=== PATIENT | female | born 1940 | race Caucasian/White ===

== ENCOUNTER 2021-02-07 09:46 | Inpatient (IN) ==
[2021-02-07] MEDS ORDERED: Isovue-370 500 ML BOTTLE IVP ONE (10:09)
[2021-02-07] MEDS ORDERED: 0.9 % Sodium Chloride 1,000 ML IVC ONE (10:09)
[2021-02-07 10:25] LABS: Basophils % 0.1 %; Hematocrit 40.6 % (35.3-44.9); Hemoglobin 13.4 g/dL (11.5-15.4); Immature Granulocytes % 0.7 % (0-4); Lymphocytes # 0.9 K/mcL (0.6-4.6); Lymphocytes % 9.6 %; Mean Corpuscular Hemoglobin 29.4 pg (28.0-33.3); Mean Platelet Volume 9.3 fL (9.4-12.4); Monocytes # 1.1 K/mcL (0.0-1.3); Monocytes % 12.6 %; Neutrophils # 6.9 K/mcL (1.6-8.9); Platelet Count 268 K/mcL (140-400); Red Blood Count 4.56 M/mcL (3.82-4.97); Red Cell Distribution Width 12.4 % (11.5-14.5); White Blood Count 8.9 K/mcL (4.3-11.1)
[2021-02-07 11:20] LABS: Alanine Aminotransferase 58 Units/L (7-52); Albumin 3.9 g/dL (3.5-5.7); Albumin/Globulin Ratio 1.1 (1.1-2.2); Alkaline Phosphatase 79 Units/L (34-104); Aspartate Amino Transferase 44 Units/L (13-39); BUN/Creatinine Ratio 25 (6-26); Bilirubin,Direct 0.1 mg/dL (0.0-0.2); Bilirubin,Indirect 0.5 mg/dL (0.0-1.0); Bilirubin,Total 0.6 mg/dL (0.3-1.0); Blood Urea Nitrogen 54 mg/dL (8-23); Calcium 9.5 mg/dL (8.6-10.3); Carbon Dioxide 24 mEq/L (23-29); Chloride 98 mEq/L (98-107); Ethanol < 10 mg/dL (Less than 10); Globulin 3.6 g/dL (2.4-3.5); Glucose 148 mg/dL (70-105); Osmolality,Calculated 294 (280-300); Potassium 4.4 mEq/L (3.5-5.1); Sodium 133 mEq/L (136-145); Total Protein 7.5 g/dL (6.4-8.9); Troponin I < 0.03 ng/mL (< 0.04); eGFR For African Americans 26 (> 60); eGFR For Non-African Americans 22 (> 60)
[2021-02-07 12:06] LABS: Influenza A PCR Negative (Negative); Influenza B PCR Negative (Negative); Resp. Syncytial Virus PCR Negative (Negative)
[2021-02-07 12:43] LABS: SARS-CoV-2 by PCR (In House) Positive (Negative)
[2021-02-07 17:53] LABS: ABG Base Excess -3 mEq/L (-2 to 3); ABG HCO3 20 mEq/L (21-27); ABG Oxygen Saturation 93 % (95-98); ABG PCO2 29 mmHg (35-45); ABG PH 7.44 pH Units (7.32-7.45); ABG PO2 64 mmHg (85-104); ABG TCO2 21 mEq/L (20-26)
[2021-02-07] MEDS ORDERED: Aspirin 325 MG TABLET PO ONE (18:46)
[2021-02-07] MEDS ORDERED: Perflutren Lipid Microsphere 1.3 ML in 0.9 % Sodium Chloride 8.7 ML IVP PRN (18:51)
[2021-02-07] MEDS ORDERED: *HR* Heparin 5,000 UNIT/ML VIAL IVP ONE (18:52)
[2021-02-07] MEDS ORDERED: *HR* Heparin 5,000 UNIT/ML VIAL IVP PRN ×2 (18:52)
[2021-02-07 20:16] LABS: INR 1.1
[2021-02-07 20:18] LABS: Heparin anti-factor XA UFH 0.04 IU/mL (0.30-0.70)
[2021-02-07 20:23] LABS: Chol/HDL Ratio 3.1 (0-4.9); Cholesterol 114 mg/dL (< 200); HDL Cholesterol 37 mg/dL (40-59); LDL Cholesterol,Calculated 55 mg/dL (< 100); Triglycerides 111 mg/dL (< 150); Troponin I < 0.03 ng/mL (< 0.04)
[2021-02-07] MEDS: Heparin 25,000UNIT/250ML 1/2NS 25,000 UNIT/250 ML IV.SOLN IVC SCH (20:42)
[2021-02-07] MEDS ORDERED: Melatonin 3 MG TABLET PO PRN (21:36)
[2021-02-07] MEDS ORDERED: Ondansetron 4 MG/2 ML VIAL IVP PRN (21:36)
[2021-02-07] MEDS ORDERED: Naloxone 0.4 MG/ML INJ IVP PRN (21:36)
[2021-02-07 22:01] LABS: Phosphorous 2.5 mg/dL (2.7-4.5)
[2021-02-08 00:52] LABS: Basophils % 0.1 %; Hematocrit 35.9 % (35.3-44.9); Hemoglobin 12.1 g/dL (11.5-15.4); Immature Granulocytes % 0.9 % (0-4); Lymphocytes # 1.1 K/mcL (0.6-4.6); Lymphocytes % 13.3 %; Mean Corpuscular HGB Conc 33.7 g/dL (31.6-35.5); Mean Corpuscular Hemoglobin 30.2 pg (28.0-33.3); Mean Corpuscular Volume 89.5 fL (83.0-100.0); Mean Platelet Volume 9.2 fL (9.4-12.4); Monocytes # 1.1 K/mcL (0.0-1.3); Monocytes % 13.3 %; Neutrophils # 5.9 K/mcL (1.6-8.9); Platelet Count 239 K/mcL (140-400); Red Blood Count 4.01 M/mcL (3.82-4.97); Red Cell Distribution Width 12.4 % (11.5-14.5); Segmented Neutrophils % 72.4 %; White Blood Count 8.1 K/mcL (4.3-11.1)
[2021-02-08 01:02] LABS: Albumin 3.3 g/dL (3.5-5.7); Albumin/Globulin Ratio 1.1 (1.1-2.2); Bilirubin,Total 0.4 mg/dL (0.3-1.0); Calcium 8.4 mg/dL (8.6-10.3); Chol/HDL Ratio 2.9 (0-4.9); Globulin 3.1 g/dL (2.4-3.5); Total Protein 6.4 g/dL (6.4-8.9)
[2021-02-08 03:48] LABS: Activated Partial Thrombo Time 68.5 Seconds (26.0-36.0); INR 1.2; Prothrombin Time 14.2 Seconds (9.4-12.1)
[2021-02-08] MEDS: 0.9 % Sodium Chloride 1,000 ML IVC SCH ×2 (04:36→11:45)
[2021-02-08] MEDS ORDERED: carvediloL 6.25 MG TABLET PO SCH (08:00)
[2021-02-08] MEDS: Aspirin 81 MG TAB.CHEW PO SCH (09:19)
[2021-02-08] MEDS: carvediloL 6.25 MG TABLET PO SCH ×2 (09:19→17:44)
[2021-02-08] MEDS: levoFLOXacin 750 MG/150 ML 750 MG/150 ML BAG IVPB SCH (09:20)
[2021-02-08] MEDS: *HR* LORazepam 0.5 MG TABLET PO SCH (19:39)
[2021-02-08] MEDS: MetroNIDAZOLE 500 MG/100 ML 500 MG/100 ML BAG IVPB SCH (23:24)
[2021-02-09] MEDS: 0.9 % Sodium Chloride 1,000 ML IVC SCH ×2 (02:09→10:54)
[2021-02-09 02:47] LABS: Basophils % 0.3 %; Eosinophils % 0.3 %; Hematocrit 33.5 % (35.3-44.9); Immature Granulocytes % 1.6 % (0-4); Lymphocytes # 0.9 K/mcL (0.6-4.6); Lymphocytes % 13.3 %; Mean Corpuscular HGB Conc 32.5 g/dL (31.6-35.5); Mean Corpuscular Hemoglobin 29.1 pg (28.0-33.3); Mean Corpuscular Volume 89.6 fL (83.0-100.0); Monocytes # 0.9 K/mcL (0.0-1.3); Monocytes % 13.3 %; Neutrophils # 4.8 K/mcL (1.6-8.9); Platelet Count 230 K/mcL (140-400); Red Blood Count 3.74 M/mcL (3.82-4.97); Red Cell Distribution Width 12.5 % (11.5-14.5); Segmented Neutrophils % 71.2 %; White Blood Count 6.7 K/mcL (4.3-11.1)
[2021-02-09 02:48] LABS: Hemoglobin 10.9 g/dL (11.5-15.4)
[2021-02-09 03:02] LABS: Calcium 8.4 mg/dL (8.6-10.3)
[2021-02-09] MEDS: Heparin 25,000UNIT/250ML 1/2NS 25,000 UNIT/250 ML IV.SOLN IVC SCH ×2 (03:13→21:21)
[2021-02-09] MEDS ORDERED: Famotidine 20 MG TABLET PO SCH (09:00)
[2021-02-09] MEDS: *HR* LORazepam 0.5 MG TABLET PO SCH ×2 (10:53→21:33)
[2021-02-09] MEDS: Aspirin 81 MG TAB.CHEW PO SCH (10:53)
[2021-02-09] MEDS: carvediloL 6.25 MG TABLET PO SCH ×2 (10:54→16:10)
[2021-02-09] MEDS: MetroNIDAZOLE 500 MG/100 ML 500 MG/100 ML BAG IVPB SCH ×2 (10:56→16:10)
[2021-02-09 13:05] LABS: Bacteria,Urine Few per hpf (None-Few); Bilirubin,Urine Negative (Negative); Blood,Urine Large (Negative); Clarity,Urine Turbid (Clear); Color,Urine Light-Orange (Yellow); Glucose,Urine (UA) Normal (Normal); Ketones,Urine Trace mg/dL (Negative); Leukocyte Esterase,Urine Large (Negative); Mucus,Urine Few per lpf (None-Few); Nitrite,Urine Negative (Negative); PH,Urine 6.5 pH Units (5.0-8.0); Protein,Urine 50 mg/dL (Neg-Trace); RBC,Urine TNTC per hpf (0-3); Specific Gravity,Urine 1.016 (1.010-1.025); Squamous Epithelial Cell,Urine Few per hpf (None-Few); Urobilinogen,Urine Normal (Normal); WBC,Urine TNTC per hpf (0-3)
[2021-02-10] MEDS: MetroNIDAZOLE 500 MG/100 ML 500 MG/100 ML BAG IVPB SCH ×2 (00:22→10:13)
[2021-02-10 03:41] LABS: Alanine Aminotransferase 73 Units/L (7-52); Albumin 2.7 g/dL (3.5-5.7); Alkaline Phosphatase 76 Units/L (34-104); Aspartate Amino Transferase 52 Units/L (13-39); BUN/Creatinine Ratio 20 (6-26); Bilirubin,Total 0.4 mg/dL (0.3-1.0); Blood Urea Nitrogen 21 mg/dL (8-23); Calcium 8.3 mg/dL (8.6-10.3); Carbon Dioxide 21 mEq/L (23-29); Chloride 109 mEq/L (98-107); Globulin 2.6 g/dL (2.4-3.5); Glucose 122 mg/dL (70-105); Osmolality,Calculated 288 (280-300); Potassium 3.7 mEq/L (3.5-5.1); Sodium 137 mEq/L (136-145); Total Protein 5.3 g/dL (6.4-8.9); eGFR For African Americans > 60 (> 60); eGFR For Non-African Americans 51 (> 60)
[2021-02-10 03:49] LABS: Fibrinogen 564 mg/dL (169-393)
[2021-02-10 03:55] LABS: D-Dimer 1651 ng/mLFEU (0-500)
[2021-02-10 04:42] LABS: Hepatitis B Surface Antigen Nonreactive (Nonreactive)
[2021-02-10 05:11] LABS: Hepatitis B Core IgM Nonreactive (Nonreactive); Hepatitis C Virus Antibody Nonreactive (Nonreactive)
[2021-02-10 05:12] LABS: Hepatitis A Antibody IgM Nonreactive (Nonreactive)
[2021-02-10] MEDS ORDERED: Famotidine 20 MG TABLET PO SCH (09:00)
[2021-02-10] MEDS: carvediloL 6.25 MG TABLET PO SCH ×2 (10:12→17:00)
[2021-02-10] MEDS: *HR* LORazepam 0.5 MG TABLET PO SCH (10:12)
[2021-02-10] MEDS: Aspirin 81 MG TAB.CHEW PO SCH (10:13)
[2021-02-10] MEDS: levoFLOXacin 750 MG/150 ML 750 MG/150 ML BAG IVPB SCH (10:14)
[2021-02-10 11:01] VITALS: BP 165/82; PULSE 63; TEMP 97.8; O2SAT 98
[2021-02-10] MEDS ORDERED: levoFLOXacin 750 MG TABLET PO SCH (12:15)
[2021-02-10] MEDS ORDERED: *HR* Heparin 5,000 UNIT/ML VIAL SQ SCH (14:00)
[2021-02-10] MEDS ORDERED: metroNIDAZOLE 500 MG TABLET PO SCH (15:00)
== END 2021-02-10 17:28 | disposition home or self-care (01) | DRG 391 ==
LOC: 3BNU 09:46 → EMEROOARM 09:46 → 3BNU 21:20 → SUATTDRO 02-08 18:54
PROVIDERS: ADMIT Family Medicine; ATTEND General Practice